=== PATIENT | female | born 1970 | race Two or more races ===

== ENCOUNTER 2017-06-04 00:28 | Emergency (ER) | payer BC, OTHER ==
--- NOTE | 2017-06-04 00:46 | PDOC ---
History of Present Illness - History of Present Illness Initial Comments: 06/04/17 00:54 The patient is a 47 year old female, with a significant past medical history of migraines and constipation, who presents to the emergency department with increased swelling to her left foot today. She states her appreciated swelling to her foot about 2 months ago, however, the patient states she denied notcing swelling at the time. She reports she deceloped a sudden onset of "pressure" to her leg when she noticed the swelling to her foot and to her distal calf. She denies pain at this time. She denies recent prolonged travels. The patient reports she stands while at work, however, states she "does not work every day and was seated today when the pressure started." She denies chest pain, shortness of breath, headache and dizziness. She denies fever, chills, nausea, vomit, diarrhea and constipation. She denies dysuria, frequency, urgency and hematuria. Allergies: NKDA Past surgical history: Pt denies Social history: denies illicit drug use. reports occasional alcohol consumption PCP - Dr. Field <Josiane Raza - Last Filed: 06/04/17 00:52> <Dolly Mcclure - Last Filed: 06/04/17 01:54> - General Chief Complaint: Edema Stated Complaint: LFT FOOT/LEG SWOLLEN Time Seen by Provider: 06/04/17 00:39 Past History <Josiane Raza - Last Filed: 06/04/17 00:52> - Psycho/Social/Smoking Cessation Hx Anxiety: No Suicidal Ideation: No Smoking History: Never smoked Have you smoked in the past 12 months: No Hx Alcohol Use: No Drug/Substance Use Hx: No Substance Use Type: None <Dolly Mcclure - Last Filed: 06/04/17 01:54> - Past Medical History Allergies/Adverse Reactions: Allergies Allergy/AdvReac Type Severity Reaction Status Date / Time tree nut Allergy Difficulty Verified 06/04/17 00:47 Breathing Home Medications: Ambulatory Orders NK [No Known Home Medication] 06/04/17 Review of Systems - Review of Systems Able to Perform ROS?: Yes Comments:: 06/04/17 00:53 CONSTITUTIONAL: Absent: fever, no chills, no fatigue EYES: Absent: visual changes ENT: Absent: ear pain, no sore throat CARDIOVASCULAR: Absent: chest pain, no palpitations RESPIRATORY: Absent: cough, no SOB GI: Absent: abdominal pain, no nausea, no vomiting, no constipation, no diarrhea GENITOURINARY: Absent: dysuria, no frequency, no hematuria MUSCULOSKELETAL: Absent: back pain, no arthralgia, no myalgia EXTREMITIES: (+) Swelling to left foot and calf. SKIN: Absent: rash NEURO: Absent: headache <Josiane Raza - Last Filed: 06/04/17 00:52> *Physical Exam - Vital Signs Last Vital Signs Temp Pulse Resp BP Pulse Ox 117/79 100 06/04/17 00:40 06/04/17 00:40 - Physical Exam Comments: 06/04/17 00:54 GENERAL: Well-appearing, well-nourished. No apparent distress. HEENT: Normocephalic, atraumatic. PERRL, EOM intact. CARDIOVASCULAR: Normal S1, S2. Regular rate and rhythm. PULMONARY: Clear to auscultation bilaterally. ABDOMEN: Soft, non-distended, non-tender. EXTREMITIES: (+) Edema to the left foot. DP and PP pulses intact. Normal ROM in all four extremities. No gross deformities. SKIN: Warm, dry. No rash NEUROLOGICAL: No focal neurological deficits. <Josiane Raza - Last Filed: 06/04/17 00:52> Medical Decision Making - Medical Decision Making 06/04/17 01:46 47-year-old female who presents with left leg and foot edema. No pitting edema noted. She denies any DVT risk factors. No recent surgery, no extended flights , no long car rides duplex doppler NEGATIVE for dvt <Dolly Mcclure - Last Filed: 06/04/17 01:54> *DC/Admit/Observation/Transfer - Attestations Scribe Attestion: 06/04/17 00:58 Documentation prepared by Josiane Raza, acting as medical claims representative for Dolly Mcclure MD <Josiane Raza - Last Filed: 06/04/17 00:52> <Dolly Mcclure - Last Filed: 06/04/17 01:54> Diagnosis at time of Disposition: Edema Qualifiers: Edema type: unspecified Qualified Code(s): R60.9 - Edema, unspecified - Discharge Dispostion Disposition: HOME Condition at time of disposition: Stable - Referrals Referrals: Mohit Sanabria MD [Primary Care Provider] - - Patient Instructions Printed Discharge Instructions: DI for Peripheral Edema, Unilateral Additional Instructions: please follow up with your regular physician keep your leg elevated on 2 pillows when you sleep
[2017-06-04 00:52] VITALS: BP 117/79; BMI 22.6
== END 2017-06-04 02:19 | disposition home or self-care (01) ==
LOC: JER 00:28
DX: R60.0 Localized edema (principal); Z86.69 Personal history of other diseases of the nervous system and sense organs
CPT/HCPCS: 93971-TC; 99282-25

== ENCOUNTER 2018-10-27 08:44 | Emergency (ER) | payer BC, OTHER ==
[2018-10-27 08:50] VITALS: BP 115/68; PULSE 78; TEMP 97.8; BMI 21.7
--- NOTE | 2018-10-27 08:53 | PDOC ---
History of Present Illness - General Chief Complaint: Respiratory Stated Complaint: R/O FLU Time Seen by Provider: 10/27/18 08:49 History Source: Patient Exam Limitations: No Limitations - History of Present Illness Initial Comments: 10/27/18 09:09 48 yr female with nasal congestion sore throat body aches started 2 days ago had chills last night. Pt with productive cough. no pmhx no allergies. Past History - Past Medical History Allergies/Adverse Reactions: Allergies Allergy/AdvReac Type Severity Reaction Status Date / Time tree nut Allergy Difficulty Verified 10/27/18 08:49 Breathing Home Medications: Ambulatory Orders Albuterol Sulfate Inhaler - [Ventolin HFA Inhaler -] 1 - 2 inh PO QID #1 inhaler 10/27/18 Fluticasone Prop 0.05% Nasal [Flonase -] 1 - 2 spray NS DAILY #1 spray.pump Prednisone [Deltasone] 40 mg PO DAILY #10 tablet 10/27/18 COPD: No Other medical history: migraines - Suicide/Smoking/Psychosocial Hx Smoking History: Never smoked Have you smoked in the past 12 months: No Hx Alcohol Use: No Drug/Substance Use Hx: No Substance Use Type: None *Physical Exam - Vital Signs Last Vital Signs Temp Pulse Resp BP Pulse Ox 97.8 F 78 18 115/68 99 10/27/18 08:47 10/27/18 08:47 10/27/18 08:47 10/27/18 08:47 10/27/18 08:47 - Physical Exam General Appearance: Yes: Nourished, Appropriately Dressed HEENT: positive: EOMI, TIARA, Pharyngeal Erythema, Nasal Congestion Neck: positive: Supple Respiratory/Chest: positive: Wheezing Gastrointestinal/Abdominal: positive: Normal Bowel Sounds, Soft Musculoskeletal: positive: Normal Inspection Extremity: positive: Normal Capillary Refill, Normal Inspection, Normal Range of Motion Integumentary: positive: Normal Color, Dry, Warm Neurologic: positive: dewaxer II-XII NML intact, Fully Oriented, Alert, Normal Mood/ Affect, Normal Response, Motor Strength 5/5 Moderate Sedation - Procedure Monitoring Vital Signs: Procedure Monitoring Vital Signs Temperature 97.8 F 10/27/18 08:47 Pulse Rate 78 10/27/18 08:47 Respiratory Rate 18 10/27/18 08:47 Blood Pressure 115/68 10/27/18 08:47 O2 Sat by Pulse Oximetry (%) 99 10/27/18 08:47 Medical Decision Making - Medical Decision Making 10/27/18 09:10 cc: cough sore throat , nasal congestion wheezing r/o flu, strep bronchitis will give nebulizer, motrin now 10/27/18 09:54 pt feels better after nebulizer awaiting flu and strep *DC/Admit/Observation/Transfer Diagnosis at time of Disposition: Bronchitis - Discharge Dispostion Disposition: HOME Condition at time of disposition: Good - Prescriptions Prescriptions: Albuterol Sulfate Inhaler - [Ventolin HFA Inhaler -] 1 - 2 inh PO QID #1 inhaler Fluticasone Prop 0.05% Nasal [Flonase -] 1 - 2 spray NS DAILY #1 spray.pump Prednisone [Deltasone] 40 mg PO DAILY #10 tablet - Referrals Referrals: Mohit Sanabria MD [Primary Care Provider] - - Patient Instructions Printed Discharge Instructions: DI for Acute Bronchitis Additional Instructions: use the inhaler as directed for wheezing and cough take ibuprofen 600mg every 8hrs for headache fever or body aches drink pleanty of water to stay well hydrated flonase for nasal congestion follow up with your doctor in 2-3 days - Post Discharge Activity Forms/Work/School Notes: Back to Work
[2018-10-27] MEDS ORDERED: ALBUTEROL SO4 2.5/IPRATROPIUM 0.5 INH SOL 3 ML VIAL.NEB. NEB ONE (09:06)
[2018-10-27] MEDS ORDERED: IBUPROFEN 600 MG TABLET (FP) PO ONE ×2 (09:06→09:10)
[2018-10-27] MEDS ORDERED: ALBUTEROL SO4 0.083% IH SOL 2.5 MG/3 ML VIAL.NEB. NEB ONE (09:10)
== END 2018-10-27 10:10 | disposition home or self-care (01) ==
LOC: JERFT 08:44
PROC: 3E0F7GC Introduction of Other Therapeutic Substance into Respiratory Tract, Via Natural or Artificial Opening (ICD-10-PCS; principal; 2018-10-27)
DX: J40 Bronchitis, not specified as acute or chronic (principal)
CPT/HCPCS: 87070; 87804; 87880; 99281-25

== ENCOUNTER 2020-11-04 23:13 | Emergency (ER) | payer BC, OTHER ==
[~2020-11-04 23:13] MED LIST: LIDOCAINE PATCH REMOVAL MC SCH
[2020-11-04] MEDS ORDERED: ACETAMINOPHEN 325 MG TABLET (FP) PO ONE (23:52)
[2020-11-04] MEDS ORDERED: LIDOCAINE 5% TOPICAL PATCH TP ONE (23:52)
[2020-11-05] MEDS ORDERED: ACETAMINOPHEN 325 MG TABLET (FP) ONE (00:11)
[2020-11-05] MEDS ORDERED: LIDOCAINE 5% TOPICAL PATCH ONE (00:11)
[2020-11-05 00:35] VITALS: BP 114/79; PULSE 87; TEMP 97.8; BMI 21.6
== END 2020-11-05 01:40 | disposition home or self-care (01) ==
LOC: JER 23:13
DX: M79.605 Pain in left leg (principal)
CPT/HCPCS: 85379; 93971-TC; 99284-25

== ENCOUNTER 2021-08-10 21:52 | Emergency (ER) | payer BC, OTHER ==
[2021-08-10 22:02] VITALS: BP 102/71; PULSE 87; TEMP 98.5; BMI 22.6
[2021-08-10] MEDS ORDERED: IBUPROFEN 400 MG TABLET (FP) PO ONE ×2 (22:34→22:45)
== END 2021-08-10 23:24 | disposition home or self-care (01) ==
LOC: JERFT 21:52
DX: S60.211A Contusion of right wrist, initial encounter (principal); W01.0XXA Fall on same level from slipping, tripping and stumbling without subsequent striking against object, initial encounter; Y93.02 Activity, running
CPT/HCPCS: 73110-TC-RT-FY; 73130-TC-RT-FY; 99283-25

== ENCOUNTER 2021-11-01 19:49 | Emergency (ER) | payer BC, OTHER ==
[2021-11-01] MEDS ORDERED: ONDANSETRON 4 MG/2 ML VIAL IVPUSH ONE (20:08)
[2021-11-01] MEDS ORDERED: LACTATED RINGERS SOLUTION 1000 ML INFUS.BAG IV ONE (20:08)
[2021-11-01 20:13] VITALS: BP 101/69; PULSE 106; TEMP 98.2; BMI 21.7
[2021-11-01] MEDS ORDERED: ACETAMINOPHEN 1000 MG/100 ML VIAL IVPB ONE (20:29)
[2021-11-01] MEDS ORDERED: ACETAMINOPHEN INJECTION 100 ML IVPB ONE (20:30)
[2021-11-01] MEDS ORDERED: ONDANSETRON 4 MG/2 ML VIAL ONE (20:30)
[2021-11-01 21:19] LABS: BASO % 0.1 % (0-2.0); EOS % 0.2 % (0-4.5); HEMOGLOBIN 14.1 GM/dL (10.7-15.3); LYMPH % 10.1 % (8-40); MCH 30.7 pg (25.7-33.7); MCHC 33.5 g/dl (32.0-36.0); MEAN CELL VOLUME 91.5 fl (80-96); MEAN PLT VOLUME 8.3 fl (7.5-11.1); MONO % 6.1 % (3.8-10.2); NEUT % 83.5 % (42.8-82.8); PLATELET COUNT 221 10^3/uL (134-434); RBC 4.59 M/mm3 (3.60-5.2); RDW 13.1 % (11.6-15.6); WHITE BLOOD COUNT 6.4 K/mm3 (4.0-10.0)
[2021-11-01 21:33] LABS: CALCIUM 8.9 mg/dL (8.5-10.1)
[2021-11-01 21:34] LABS: BLOOD UREA NITROGEN 31.2 mg/dL (7-18)
[2021-11-01 21:37] LABS: CREATININE 0.8 mg/dL (0.55-1.3)
[2021-11-01 21:38] LABS: BILIRUBIN,TOTAL 1.2 mg/dL (0.2-1); TOT PROT 8.2 g/dl (6.4-8.2)
== END 2021-11-02 00:02 | disposition home or self-care (01) ==
LOC: JER 19:49
PROC: 3E033GC Introduction of Other Therapeutic Substance into Peripheral Vein, Percutaneous Approach (ICD-10-PCS; principal; 2021-11-01)
DX: R11.2 Nausea with vomiting, unspecified (principal); R19.7 Diarrhea, unspecified
CPT/HCPCS: 36415; 80053; 85025; 87804; 99284-25; C9803; J0131; U0003; U0005

== ENCOUNTER 2022-09-27 18:28 | Emergency (ER) | payer BC, OTHER ==
[2022-09-27 18:43] VITALS: BP 127/86; PULSE 99; RESP 18; TEMP 98.1; BMI 22.4
== END 2022-09-27 20:24 | disposition home or self-care (01) ==
LOC: JERFT 18:28 → JER 18:28 → JERFT 20:24
DX: K08.89 Other specified disorders of teeth and supporting structures (principal)
CPT/HCPCS: 99283-25

== ENCOUNTER 2023-12-28 20:38 | Emergency (ER) | payer BC, OTHER ==
[2023-12-28 20:56] VITALS: BP 110/68; PULSE 89; RESP 18; TEMP 98.6; BMI 22.3
[2023-12-28] MEDS ORDERED: ACETAMINOPHEN 500 MG TABLET (FP) ONE (21:41)
[2023-12-28] MEDS: ACETAMINOPHEN 325 MG TABLET (FP) PO ONE (21:43)
== END 2023-12-28 22:24 | disposition home or self-care (01) ==
LOC: JERFT 20:38 → JER 20:38 → JERFT 22:24
DX: R50.9 Fever, unspecified (principal); M79.10 Myalgia, unspecified site; R51.9 Headache, unspecified; R09.89 Other specified symptoms and signs involving the circulatory and respiratory systems; J10.1 Influenza due to other identified influenza virus with other respiratory manifestations; Z20.822 Contact with and (suspected) exposure to COVID-19
CPT/HCPCS: 0241U-QW; 99283-25

== ENCOUNTER 2024-03-14 20:41 | Emergency (ER) | payer BC, OTHER ==
[2024-03-14 20:45] VITALS: BP 107/73; PULSE 83; RESP 18; TEMP 98.6; BMI 22.4
== END 2024-03-14 22:40 | disposition home or self-care (01) ==
LOC: JERFT 20:41
DX: M79.604 Pain in right leg (principal)
CPT/HCPCS: 99282-25